=== PATIENT | male | born 1940 | race Caucasian/White ===

== ENCOUNTER → 2017-11-08 | Outpatient (CLI) | payer MEDICARE ==
--- NOTE | 2017-11-08 13:25 | US ---
EXAMINATION TYPE: US carotid duplex BILAT DATE OF EXAM: 11/08/2017 COMPARISON: NONE CLINICAL HISTORY: R42 Dizziness. EXAM MEASUREMENTS: RIGHT: Peak Systolic Velocity (PSV) cm/sec ----- Right CCA: 60.2 ----- Right ICA: 79.0 ----- Right ECA: 86.0 ICA/CCA ratio: 1.3 RIGHT: End Diastole cm/sec ----- Right CCA: 11.8 ----- Right ICA: 21.5 ----- Right ECA: 0.0 LEFT: Peak Systolic Velocity (PSV) cm/sec ----- Left CCA: 68.6 ----- Left ICA: 84.3 ----- Left ECA: 53.7 ICA/CCA ratio: 1.2 LEFT: End Diastole cm/sec ----- Left CCA: 11.9 ----- Left ICA: 24.1 ----- Left ECA: 0.0 VERTEBRALS (direction of flow): Right Vertebral: Antegrade Left Vertebral: Antegrade Rhythm: Normal No significant stenosis seen, no elevated velocities, mild bilateral plaque. IMPRESSION: No evidence for hemodynamically significant stenosis. Criteria for Assigning % of Stenosis / Diameter reduction (Estimation based on the indirect measurements of the internal carotid artery velocities (ICA PSV). 1. Normal (no stenosis)=ICA PSV < 125 cm/s: ratio < 2.0: ICA EDV<40 cm/s. 2. Less than 50% stenosis=ICA PSV < 125 cm/s: ratio < 2.0: ICA EDV<40 cm/s. 3. 50 to 69% stenosis=ICA PSV of 125 to 230 cm/s: ration 2.0 ? 4.0: ICA EDV 40-100 cm/s. 4. Greater than 70% stenosis to near occlusion= ICA PSV > 230 cm/s: ratio > 4.0: ICA EDV > 100 cm/s. 5. Near occlusion= ICA PSV velocities may be low or undetectable: variable ratio and ICA EDV. 6. Total occlusion=unable to detect flow.
== END | disposition home or self-care (01) ==
LOC: RADUSWWP 11:57
PROVIDERS: ATTEND Family Medicine
DX: R42 Dizziness and giddiness (principal)
CPT/HCPCS: 93880

== ENCOUNTER → 2017-11-26 | Outpatient (CLI) | payer MEDICARE ==
--- NOTE | 2017-11-29 10:14 | ECHOF ---
Referral Reason:R42 Dizziness MEASUREMENTS -------- HEIGHT: 182.9 cm WEIGHT: 93.9 kg BP: RVIDd: 3.0 cm (< 3.3) IVSd: 1.3 cm (0.6 - 1.1) LVIDd: 4.1 cm (3.9 - 5.3) LVPWd: 1.3 cm (0.6 - 1.1) IVSs: 1.8 cm LVIDs: 2.1 cm LVPWs: 1.6 cm LAESV Index (A-L): 16.11 ml/m Ao Diam: 3.1 cm (2.0 - 3.7) AV Cusp: 2.1 cm (1.5 - 2.6) LA Diam: 4.2 cm (2.7 - 3.8) MV EXCURSION: 15.618 mm (> 18.000) MV EF SLOPE: 30 mm/s (70 - 150) EPSS: 0.5 cm MV E Macario: 0.79 m/s MV DecT: 222 ms MV A Macario: 1.02 m/s MV E/A Ratio: 0.77 AR PHT: 508 ms RAP: 5.00 mmHg RVSP: 20.81 mmHg FINDINGS -------- Sinus rhythm. This was a technically good study. The left ventricular size is normal. There is mild concentric left ventricular hypertrophy. Overa ll left ventricular systolic function is normal with, an EF between 55 - 60 %. The right ventricle is normal in size and function. The left atrium is normal in size. The right atrium is normal in size. Aortic valve is trileaflet and is mildly thickened. There is mild aortic regurgitation. The mitral valve leaflets are mildly thickened. Mild mitral regurgitation is present. Mild tricuspid regurgitation present. The right ventricular systolic pressure, as measured by Doppl er, is 20.81mmHg. Pulmonic valve appears structurally normal. The aortic root size is normal. IVC Not well visulized. CONCLUSIONS -------- 1. Sinus rhythm. 2. This was a technically good study. 3. The left ventricular size is normal. 4. There is mild concentric left ventricular hypertrophy. 5. Overall left ventricular systolic function is normal with, an EF between 55 - 60 %. 6. The right ventricle is normal in size and function. 7. The left atrium is normal in size. 8. The right atrium is normal in size. 9. Aortic valve is trileaflet and is mildly thickened. 10. There is mild aortic regurgitation. 11. The mitral valve leaflets are mildly thickened. 12. Mild mitral regurgitation is present. 13. Mild tricuspid regurgitation present. 14. The right ventricular systolic pressure, as measured by Doppler, is 20.81mmHg. 15. Pulmonic valve appears structurally normal. 16. The aortic root size is normal. 17. IVC Not well visulized. FLIGHT DECK OFFICER: Cori Martinez RDCS
== END | disposition home or self-care (01) ==
LOC: RADECHMAIN 15:27
PROVIDERS: ATTEND Family Medicine
DX: I08.3 Combined rheumatic disorders of mitral, aortic and tricuspid valves (principal)
CPT/HCPCS: 93306

== ENCOUNTER 2018-07-30 13:25 | Inpatient (IN) | payer MEDICARE ==
[2018-07-30 15:28] LABS: Albumin 4.4 g/dL (3.5-5.0); Calcium 9.8 mg/dL (8.4-10.2); Potassium 4.3 mmol/L (3.5-5.1); Total Bilirubin 1.2 mg/dL (0.2-1.3); Total Protein 7.3 g/dL (6.3-8.2)
[2018-07-30 15:30] LABS: Appearance,Urine Clear (Clear); Bilirubin,Urine Negative (Negative); Blood,Urine Negative (Negative); Color,Urine Yellow; Glucose,Urine (UA) Negative (Negative); Ketones,Urine Negative (Negative); Leukocyte Esterase,Urine Negative (Negative); Nitrite,Urine Negative (Negative); PH, Urine 5.5 (5.0-8.0); Protein,Urine Trace (Negative); Specific Gravity,Urine 1.015 (1.001-1.035); Urobilinogen,Urine <2.0 mg/dL (<2.0)
[2018-07-30] MEDS ORDERED: SODIUM CHLORIDE 0.9% 500 ML 500 ML IV ONE (15:33)
[2018-07-30 15:48] LABS: Basophils % (A) 0 %; Eosinophils # (A) 0.3 k/uL (0-0.7); Eosinophils % (A) 3 %; HCT 39.7 % (39.0-53.0); HGB 12.9 gm/dL (13.0-17.5); Lymphocytes # (A) 2.3 k/uL (1.0-4.8); Lymphocytes % (A) 25 %; MCH 29.3 pg (25.0-35.0); MCHC 32.6 g/dL (31.0-37.0); MCV 89.9 fL (80.0-100.0); Mean Platelet Volume 7.4; Monocytes # (A) 0.8 k/uL (0-1.0); Monocytes % (A) 8 %; Neutrophils # (A) 5.6 k/uL (1.3-7.7); Neutrophils % (A) 61 %; Platelet Count 163 k/uL (150-450); RBC 4.41 m/uL (4.30-5.90); RDW 13.9 % (11.5-15.5); WBC 9.3 k/uL (3.8-10.6)
[2018-07-30] MEDS ORDERED: KETOROLAC 30 MG/ML 1 ML VIAL IVP STA (15:50)
--- NOTE | 2018-07-30 16:22 | CT ---
EXAMINATION TYPE: CT abdomen pelvis w con, CT lumbar spine w con DATE OF EXAM: 07/30/2018 COMPARISON: None. HISTORY: Generalized pain CT DLP: 2257.8 mGycm, Automated Exposure Control for Dose Reduction was Utilized. CONTRAST: CT scan of abdomen and pelvis and lumbar spine are all performed without oral but with IV Contrast, p atient injected with 80 mL of Isovue 300. FINDINGS: LUNG BASES: Coronary artery calcification is present which is noted marker for underlying coronary ar jay disease. Dependent atelectasis is seen. Respiratory motion artifact degradation is present. LIVER/GB: Linear calcification inferior lateral right hepatic lobe is presumed benign, artifact degra dation is present. PANCREAS: No significant abnormality is seen. SPLEEN: No significant abnormality is seen. ADRENALS: No significant abnormality is seen. KIDNEYS: There are a few small simple appearing cysts scattered throughout both kidneys. There is sym metric or medullary uptake and excretion without hydronephrosis seen bilaterally. Bladder is poorly d istended. There is mild to moderate abnormal concentric wall thickening measuring up to 9 mm. BOWEL: Normal-appearing appendix is felt from base of cecum extending inferiorly. No suspicious small or large bowel dilatation. PROSTATE/SEMINAL VESICLES: No gross abnormality seen. LYMPH NODES: No greater than 1cm abdominal or pelvic lymph nodes are appreciated. OSSEOUS STRUCTURES: Moderate multilevel spurring in the thoracic spine is seen. There is mild to mode rate narrowing and mild spurring of both hip joints OTHER: Mild calcified plaque of aorta is seen. Infrarenal IVC filter is present. There is prominence of the common iliac veins noted before IVC junc tion. There is ill-defined fluid and fat stranding near iliac junction with ill-defined fluid extendi ng into the upper pelvis. Lumbar spine: There are 5 lumbar-type vertebra identified. Vertebral body heights are maintained. Faviola tebral body heights are maintained. There is moderate disc space narrowing with moderate diffuse ante rior spurring L4-L5 level. There is mild disc space narrowing with vacuum disc phenomenon L5-S1 level . No large posterior disc herniations are seen on sagittal images. Axial images show mild facet degener ative changes L2-L3 with mild broad disc bulge minimally effacing anterior thecal sac. There is moderate to moderate broad disc bulge mildly effacing anterior thecal sac with moderate face t degenerative changes L3-L4 level this is causing mild left greater than right bilateral anterior in ferior neural foraminal narrowing. Axial images at the L4-L5 level show moderate to advanced right greater than left facet degenerative changes. There is central disc protrusion but spinal canal is preserved. There is moderate right-side d neural foraminal narrowing. Axial images at the L5-S1 level shows central disc protrusion with moderate facet degenerative change s. Spinal canal is preserved. Bilateral neural foramina are patent. IMPRESSION: 1. Possible cystitis as there is abnormal wall thickening and poorly distended bladder, correlate cli nically and with urine and lab values. 2. 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 Infrarenal IVC filter is noted. Other et iologies of inflammation not excluded. 3. Multilevel degenerative changes in lumbar spine as detailed above. No acute fracture or dislocatio n.
--- NOTE | 2018-07-30 16:26 | ED ---
General Adult HPI - General Chief complaint: Back Pain/Injury Stated complaint: Back Pain left leg pain & swelling Time Seen by Provider: 07/30/18 14:33 Source: patient Limitations: physical limitation - History of Present Illness Initial comments: Very pleasant 78-year-old male presented for multiple complaints. 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 He states he is unable to fit it into his prosthetic. He states he has not experienced this in the past. He denies any erythema fever chills or night sweats. In addition patient states she has had bilateral lower back pain he states it feels more to the side opposed to midline. He denies any falls or direct trauma to the back. He denies any numbness tingling or loss sensation of the lower extremities he denies any weakness of the hip joint. Patient denies any loss of bowel or bladder control. He states he has had some urinary hesitancy lately he feels he only urinates a small amount, he has peed since arrival in ER. Patient denies any midabdominal discomfort or extensive distention. He denies a dysuria frequency or hematuria. Patient states after a total knee surgery he had a DVT he states he has not had one since. He denies use of anticoagulation therapy aside from a daily aspirin. Patient denies history of diabetes, hypertension, and coronary artery disease or CVA. Upon arrival patient is pleasant he appears well there is no signs of acute distress or toxicity. Patient is afebrile. Remaining review of system negative, patient denies chest pain, dyspnea dyspraxia exertion he denies nausea vomiting epigastric pain or abdominal pain. - Related Data Home Medications Medication Instructions Recorded Confirmed Aspirin [[place] Aspirin EC] 81 mg PO DAILY 07/30/18 07/30/18 Atorvastatin [Lipitor] 20 mg PO DAILY 07/30/18 07/30/18 Citalopram Hydrobromide [CeleXA] 10 mg PO DAILY 07/30/18 07/30/18 Glucosamine/MSM/Chrond/D3/Bosw 1 tab PO BID 07/30/18 07/30/18 [Apebdybiqzk-Szopva-FBB-D3 Cplt] Lansoprazole [Prevacid] 30 mg PO DAILY 07/30/18 07/30/18 Metoprolol Succinate [Toprol XL] 50 mg PO DAILY 07/30/18 07/30/18 Allergies Allergy/AdvReac Type Severity Reaction Status Date / Time No Known Allergies Allergy Verified 07/30/18 14:22 Review of Systems ROS Statement: Those systems with pertinent positive or pertinent negative responses have been documented in the HPI. ROS Other: All systems not noted in ROS Statement are negative. Past Medical History Past Medical History: No Reported History History of Any Multi-Drug Resistant Organisms: None Reported Past Surgical History: Hernia Repair Additional Past Surgical History / Comment(s): BKA, AKA Past Psychological History: No Psychological Hx Reported Smoking Status: Never smoker Past Alcohol Use History: None Reported Past Drug Use History: None Reported General Exam - General Exam Comments Initial Comments: General: The patient is awake and alert, in no distress, and does not appear acutely ill. Eye: Pupils are equal, round and reactive to light, extra-ocular movements are intact. No nystagmus. There is normal conjunctiva bilaterally. No signs of icterus. Ears, nose, mouth and throat: There are moist mucous membranes and no oral lesions. Neck: The neck is supple, there is no tenderness or JVD. Cardiovascular: There is a regular rate and rhythm. No murmur, rub or gallop is appreciated. Respiratory: Lungs are clear to auscultation, respirations are non-labored, breath sounds are equal. No wheezes, stridor, rales, or rhonchi. Gastrointestinal: Soft, non-distended, non-tender abdomen without masses or organomegaly noted. There is no rebound or guarding present. No CVA tenderness. Bowel sounds are unremarkable. Normal rectal tone, no gross blood. Musculoskeletal: BKA of the right LE, AKA of the left leg, that is swollen. No erythema or warmth. Normal ROM, no tenderness of the hips b/l. Strength 5/5 at the hips b/l. Sensation intact of the LE b/l. Radial pulses equal bilaterally 2+. Neurological: A&O x 3. CN II-XII intact, There are no obvious motor or sensory deficits. Coordination appears grossly intact. Speech is normal. Skin: Skin is warm and dry and no rashes or lesions are noted. Psychiatric: Cooperative, appropriate mood & affect, normal judgment. Limitations: physical limitation Course Vital Signs 07/30/18 13:48 Temperature 97.5 F L Pulse Rate 69 Respiratory 20 Rate Blood Pressure 140/68 O2 Sat by Pulse 96 Oximetry Medical Decision Making - Medical Decision Making Well-appearing 78-year-old male presenting today for chief complaint of right stump swelling. 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 He states it has been swollen for the past day. He is unable to use his prosthesis. He denies pain. Patient states he does have some bilateral lower back pain. He states he hasn't a baseline however this appears increases mostly to the right side. Patient denies any injury to the back. Patient is neurovascularly intact upon examination. There is extensive swelling of the right stump. No erythema or signs of infection. Patient shows no signs of toxicity he is afebrile no leukocytosis. CT of the lumbar spine revealed no significant spinal canal stenosis or foraminal narrowing narrowing. Patient has good rectal tone and sensation of the lower extremities as well as strength of the hips bilaterally. I very low suspicion for cauda equina. Patient has no urinary retention on bladder scan. I feel he has hesitancy could be related to enlarged prostate as differential diagnosis. Patient denies stool incontinence. There is no significant midline tenderness to patient of the lumbar spine mostly right-sided paravertebral. Differential diagnosis included kidney stones for the right low back/flank pain. CT revealed no acute intra-abdominal process. There was findings consistent with possible chronic venous thrombosis. Ultrasound the right lower extremity revealed a distal femoral DVT, appears acute. Most likely pt cause of swelling. At this time pt will be started on high intesity heparin and admitted to the hospital. Pt has IVC filter in place. Dr Mahoney accepted admission after speaking with my attending Dr. Aguirre who reviewed both laboratory and imaging studies. Pt is agreeable with admission at this time. Pt was evaluated at 6:40 in the Er by admitting provider who states he will place any consults, no further instruction from attending nor admitting provider. Pt transferred to floor in stable condition. - Lab Data Result diagrams: 07/30/18 15:08 07/30/18 15: Lab Results 07/30/18 07/30/18 07/30/18 Range/Units 15: 15: 15: WBC 9.3 (3.8-10.6) k/uL RBC 4.41 (4.30-5.90) m/uL Hgb 12.9 L (13.0-17.5) gm/dL Hct 39.7 (39.0-53.0) % MCV 89.9 (80.0-100.0) fL MCH 29.3 (25.0-35.0) pg MCHC 32.6 (31.0-37.0) g/dL RDW 13.9 (11.5-15.5) % Plt Count 163 (150-450) k/uL Neutrophils % 61 % Lymphocytes % 25 % Monocytes % 8 % Eosinophils % 3 % Basophils % 0 % Neutrophils # 5.6 (1.3-7.7) k/uL Lymphocytes # 2.3 (1.0-4.8) k/uL Monocytes # 0.8 (0-1.0) k/uL Eosinophils # 0.3 (0-0.7) k/uL Basophils # 0.0 (0-0.2) k/uL PT (9.0-12.0) sec INR (<1.2) APTT (22.0-30.0) sec Sodium 140 (137-145) mmol/L Potassium 4.3 (3.5-5.1) mmol/L Chloride 109 H (98-107) mmol/L Carbon Dioxide 21 L (22-30) mmol/L Anion Gap 10 mmol/L BUN 22 H (9-20) mg/dL Creatinine 1.32 H (0.66-1.25) mg/dL Est GFR (CKD-EPI)AfAm 59 (>60 ml/min/1.73 sqM) Est GFR (CKD-EPI)NonAf 51 (>60 ml/min/1.73 sqM) Glucose 95 (74-99) mg/dL Calcium 9.8 (8.4-10.2) mg/dL Total Bilirubin 1.2 (0.2-1.3) mg/dL AST 24 (17-59) U/L ALT 16 L (21-72) U/L Alkaline Phosphatase 96 (38-126) U/L NT-Pro-B Natriuret Pep pg/mL Total Protein 7.3 (6.3-8.2) g/dL Albumin 4.4 (3.5-5.0) g/dL Urine Color Yellow Urine Appearance Clear (Clear) Urine pH 5.5 (5.0-8.0) Ur Specific [place] 1.015 (1.001-1.035) Urine Protein Trace H (Negative) Urine Glucose (UA) Negative (Negative) Urine Ketones Negative (Negative) Urine Blood Negative (Negative) Urine Nitrite Negative (Negative) Urine Bilirubin Negative (Negative) Urine Urobilinogen <2.0 (<2.0) mg/dL Ur Leukocyte Esterase Negative (Negative) 07/30/18 07/30/18 Range/Units 15:08 15:08 WBC (3.8-10.6) k/uL RBC (4.30-5.90) m/uL Hgb (13.0-17.5) gm/dL Hct (39.0-53.0) % MCV (80.0-100.0) fL MCH (25.0-35.0) pg MCHC (31.0-37.0) g/dL RDW (11.5-15.5) % Plt Count (150-450) k/uL Neutrophils % % Lymphocytes % % Monocytes % % Eosinophils % % Basophils % % Neutrophils # (1.3-7.7) k/uL Lymphocytes # (1.0-4.8) k/uL Monocytes # (0-1.0) k/uL Eosinophils # (0-0.7) k/uL Basophils # (0-0.2) k/uL PT 10.0 (9.0-12.0) sec INR 0.9 (<1.2) APTT 23.7 (22.0-30.0) sec Sodium (137-145) mmol/L Potassium (3.5-5.1) mmol/L Chloride (98-107) mmol/L Carbon Dioxide (22-30) mmol/L Anion Gap mmol/L BUN (9-20) mg/dL Creatinine (0.66-1.25) mg/dL Est GFR (CKD-EPI)AfAm (>60 ml/min/1.73 sqM) Est GFR (CKD-EPI)NonAf (>60 ml/min/1.73 sqM) Glucose (74-99) mg/dL Calcium (8.4-10.2) mg/dL Total Bilirubin (0.2-1.3) mg/dL AST (17-59) U/L ALT (21-72) U/L Alkaline Phosphatase (38-126) U/L NT-Pro-B Natriuret Pep 163 pg/mL Total Protein (6.3-8.2) g/dL Albumin (3.5-5.0) g/dL Urine Color Urine Appearance (Clear) Urine pH (5.0-8.0) Ur Specific [place] (1.001-1.035) Urine Protein (Negative) Urine Glucose (UA) (Negative) Urine Ketones (Negative) Urine Blood (Negative) Urine Nitrite (Negative) Urine Bilirubin (Negative) Urine Urobilinogen (<2.0) mg/dL Ur Leukocyte Esterase (Negative) Disposition Clinical Impression: Femoral vein thrombosis, right, Low back pain, Urinary hesitancy Disposition: ADMITTED IP TO THIS [facility] Condition: Good Is patient prescribed a controlled substance at d/c from ED?: No Time of Disposition: 17:42 Decision to Admit Reason: Admit from EC Decision Date: 07/30/18 Decision Time: 17:42
[2018-07-30] MEDS ORDERED: Acetaminophen-Codeine 300-30mg TAB PO STA (16:54)
--- NOTE | 2018-07-30 16:58 | US ---
EXAMINATION TYPE: US venous doppler duplex LE RT DATE OF EXAM: 07/30/2018 4:37 PM COMPARISON: NONE CLINICAL HISTORY: swelling in above knee amputaion stump. Hx DVT. Swelling above knee amputation stum p x 3 days. Amputation 8 years ago after trauma. SIDE PERFORMED: Right TECHNIQUE: The lower extremity deep venous system is examined utilizing real time linear array sonog marcin with graded compression, doppler sonography and color-flow sonography. VESSELS IMAGED: External Iliac Vein (EIV) Common Femoral Vein Deep Femoral Vein Greater Saphenous Vein * Femoral Vein There appears to be extensive DVT in the right lower extremity. Veins visualized are non-compressibl e. Thrombus seen from right distal femoral vein extending to external iliac vein. Right Leg: Positive IMPRESSION: Complete thrombosis of the right lower extremity venous system is present. Patient has kn own IVC filter.
[2018-07-30] MEDS ORDERED: HEPARIN SODIUM,PORCINE 5,000 UNIT/ML 1 ML VIAL IV PRN (17:40)
[2018-07-30] MEDS ORDERED: HEPARIN SODIUM,PORCINE 10,000 UNIT/ML 1 ML VIAL IV ONE (17:40)
[2018-07-30] MEDS ORDERED: MORPHINE SULFATE 4 MG/ML SYRINGE IV PRN (18:12)
[2018-07-30] MEDS ORDERED: NALOXONE 0.4 MG/ML 1 ML VIAL IV PRN (18:12)
[2018-07-30 18:13] LABS: INR 0.9 (<1.2); Partial Thromboplastin Time 23.7 sec (22.0-30.0)
[2018-07-30] MEDS ORDERED: ACETAMINOPHEN TAB 325 MG TAB PO PRN (19:05)
[2018-07-30] MEDS ORDERED: traMADol 50 MG TAB PO PRN (19:05)
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
[2018-07-30] MEDS: HEPARIN SOD,PORK IN 0.45% NACL 25,000 UNIT in 0.45% NACL 1 250ML.BAG IV SCH (19:16)
[2018-07-30] MEDS: SODIUM CHLORIDE 0.9% 1,000 ML IV SCH (19:19)
[2018-07-30 20:22] VITALS: BMI 29.8
[2018-07-31 03:34] VITALS: RESP 18
[2018-07-31] MEDS: HYDROcodone/APAP 5-325MG 1 EACH TAB PO PRN ×2 (03:56→13:47)
[2018-07-31] MEDS: SODIUM CHLORIDE 0.9% 1,000 ML IV SCH (06:46)
[2018-07-31] MEDS ORDERED: PANTOPRAZOLE 40 MG TABLET PO SCH (07:30)
[2018-07-31] MEDS ORDERED: METOPROLOL SUCCINATE (ER) 50 MG TAB.ER.24H PO SCH (09:00)
[2018-07-31] MEDS ORDERED: CITALOPRAM HYDROBROMIDE 10 MG TAB PO SCH (09:00)
[2018-07-31] MEDS ORDERED: ATORVASTATIN 20 MG TAB PO SCH (09:00)
[2018-07-31] MEDS ORDERED: ASPIRIN 81 MG PO SCH (09:00)
[2018-07-31 09:51] LABS: Basophils % (A) 0 %; Eosinophils # (A) 0.4 k/uL (0-0.7); Eosinophils % (A) 5 %; HCT 36.7 % (39.0-53.0); HGB 12.1 gm/dL (13.0-17.5); Lymphocytes # (A) 2.6 k/uL (1.0-4.8); Lymphocytes % (A) 34 %; MCH 30.6 pg (25.0-35.0); MCV 92.4 fL (80.0-100.0); Mean Platelet Volume 7.5; Monocytes # (A) 0.5 k/uL (0-1.0); Monocytes % (A) 7 %; Neutrophils # (A) 3.9 k/uL (1.3-7.7); Neutrophils % (A) 51 %; Platelet Count 164 k/uL (150-450); RBC 3.97 m/uL (4.30-5.90); RDW 13.3 % (11.5-15.5); WBC 7.6 k/uL (3.8-10.6)
[2018-07-31 10:42] LABS: Calcium 8.8 mg/dL (8.4-10.2); Potassium 4.5 mmol/L (3.5-5.1)
[2018-07-31] MEDS: HEPARIN SOD,PORK IN 0.45% NACL 25,000 UNIT in 0.45% NACL 1 250ML.BAG IV SCH (11:27)
[2018-07-31 11:58] VITALS: BP 127/60; PULSE 60; TEMP 97.7
[2018-07-31] MEDS ORDERED: RIVAROXABAN 15 MG TAB PO STA (14:36)
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
== END 2018-07-31 16:48 | disposition home or self-care (01) | DRG 300 ==
LOC: EC 13:25 → 3SCARD 18:12
PROVIDERS: ADMIT Family Medicine; ATTEND Family Medicine
DX: I82.411 Acute embolism and thrombosis of right femoral vein (principal); E87.2 Acidosis; N17.9 Acute kidney failure, unspecified; E86.0 Dehydration; I10 Essential (primary) hypertension; K59.00 Constipation, unspecified; M54.5 Low back pain; R39.11 Hesitancy of micturition; Z79.82 Long term (current) use of aspirin; Z79.899 Other long term (current) drug therapy; Z86.718 Personal history of other venous thrombosis and embolism; Z89.611 Acquired absence of right leg above knee; Z89.512 Acquired absence of left leg below knee; Z98.890 Other specified postprocedural states; Z96.652 Presence of left artificial knee joint; Z95.828 Presence of other vascular implants and grafts
CPT/HCPCS: 36415; 72132; 74177; 80048; 80053; 81003; 82272; 83880; 85025; 85610; 85730; 96361; 96365; 96375; 96376; 99284

== ENCOUNTER 2021-04-03 10:30 | Emergency (ER) | payer MEDICARE ==
--- NOTE | 2021-04-03 11:24 | ED ---
General Adult HPI - General Chief complaint: Abdominal Pain Stated complaint: urinary retention/possible uti Time Seen by Provider: 04/03/21 11:00 Source: patient, EMS Mode of arrival: EMS Limitations: no limitations - History of Present Illness Initial comments: 81-year-old male presents to the emergency department with urinary symptoms. Patient states his daughter made him come in due to him having urinary hesitancy, burning with urination, and dribbling that began on Saturday. He states he has never experienced anything like this before, however, he says over the last month his pee has been getting on his bed and tripping on his pants when he uses his urinal. Patient states he does always use a urinal when he has to pee. Patient states he last urinated this morning. Patient also states he is having pain of his right leg at the site of his stump amputation. 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 He denies any erythema, warmth, pain to palpation at that site. Patient denies any pain, fevers, blood in urine, abdominal pain, chest pain, shortness of breath, dizziness, confusion. - Related Data Home Medications Medication Instructions Recorded Confirmed Aspirin [[place] Aspirin EC] 81 mg PO DAILY 07/30/18 07/30/18 Atorvastatin [Lipitor] 20 mg PO DAILY 07/30/18 07/30/18 Citalopram Hydrobromide [CeleXA] 10 mg PO DAILY 07/30/18 07/30/18 Glucosamine/MSM/Chrond/D3/Bosw 1 tab PO BID 07/30/18 07/30/18 [Enqazznqsso-Rraubs-OIJ-D3 Cplt] Lansoprazole [Prevacid] 30 mg PO DAILY 07/30/18 07/30/18 Metoprolol Succinate [Toprol XL] 50 mg PO DAILY 07/30/18 07/30/18 Previous Rx's Medication Instructions Recorded HYDROcodone/APAP 5-325MG [[employer] 1 each PO Q4HR PRN #18 tab 07/31/18 5-325] Rivaroxaban [Xarelto] 15 mg PO BID #42 tab 07/31/18 Rivaroxaban [Xarelto] 20 mg PO DAILY #90 tab 07/31/18 Cefdinir [Omnicef] 300 mg PO Q12HR 7 Days #14 capsule 04/03/21 Allergies Allergy/AdvReac Type Severity Reaction Status Date / Time No Known Allergies Allergy Verified 04/03/21 10:56 Review of Systems ROS Statement: Those systems with pertinent positive or pertinent negative responses have been documented in the HPI. ROS Other: All systems not noted in ROS Statement are negative. Past Medical History Past Medical History: No Reported History, Deep Vein Thrombosis (DVT) History of Any Multi-Drug Resistant Organisms: None Reported Past Surgical History: Hernia Repair Additional Past Surgical History / Comment(s): BKA, AKA Past Anesthesia/Blood Transfusion Reactions: No Reported Reaction Past Psychological History: No Psychological Hx Reported Smoking Status: Never smoker Past Alcohol Use History: None Reported Past Drug Use History: None Reported - Past Family History Brother(s) Family Medical History: Cancer Additional Family Medical History / Comment(s): stomach ca Sister(s) Family Medical History: Cancer Additional Family Medical History / Comment(s): breast ca General Exam Limitations: no limitations General appearance: alert, in no apparent distress Head exam: Present: atraumatic, normocephalic Eye exam: Present: normal appearance, EOMI ENT exam: Present: normal exam, mucous membranes moist Neck exam: Present: normal inspection, full ROM Respiratory exam: Present: normal lung sounds bilaterally. Absent: respiratory distress, wheezes, rales, rhonchi, stridor Cardiovascular Exam: Present: regular rate, normal rhythm, normal heart sounds. Absent: systolic murmur, diastolic murmur, rubs, gallop, clicks GI/Abdominal exam: Present: soft, normal bowel sounds. Absent: distended, tenderness, guarding, rebound, rigid Extremities exam: Present: other (Prosthetic leg on left lower extremity, [id number] amputation on right leg. No erythema, warmth, or pain to palpation of right leg.) Back exam: Present: full ROM. Absent: CVA tenderness (R), CVA tenderness (L) Neurological exam: Present: alert, oriented X3, CN II-XII intact Psychiatric exam: Present: normal affect, normal mood Skin exam: Present: warm, dry, intact, normal color. Absent: rash Course Vital Signs 04/03/21 10:52 Temperature 98.5 F Pulse Rate 61 Respiratory 22 Rate Blood Pressure 131/61 O2 Sat by Pulse 94 L Oximetry Medical Decision Making - Medical Decision Making This 81-year-old male presents emergency Department with urinary hesitancy, burning with urination and dribbling that has been worsening over the last month. Daughter also mentioned he has been having intermittent episodes of right lower extremity pain. Labs reveal RBC 3.91, HCT 38.6, lipase 21, glucose 111; all other labs unremarkable. Post void bladder scan 12 mLs Urine: Positive nitrate, urine protein 2+, trace ketones, moderate blood, leukocyte esterase moderate, WBC 122, RBC 11, bacteria moderate, occasional mucus. Will treat urinary tract infection. Venous Doppler ultrasound of right lower extremity: Findings clearly represent sequela of prior deep pain thrombosis in the right common femoral vein; advised patient to follow up with primary care provider next 1-2 days. Patient sent home on antibiotics and to follow up with urology and primary care. Patient and daughter verbally agreed to plan. Patient sent home in stable condition. Discussed with my attending, my attending is Dr. Aguirre. - Lab Data Result diagrams: 04/03/21 12:06 04/03/21 12:06 Lab Results 04/03/21 04/03/21 04/03/21 Range/Units 12:06 12:06 12:06 WBC 10.6 (3.8-10.6) k/uL RBC 3.91 L (4.30-5.90) m/uL Hgb 13.1 (13.0-17.5) gm/dL Hct 38.6 L (39.0-53.0) % MCV 98.9 (80.0-100.0) fL MCH 33.4 (25.0-35.0) pg MCHC 33.8 (31.0-37.0) g/dL RDW 13.4 (11.5-15.5) % Plt Count 190 (150-450) k/uL MPV 8.2 Neutrophils % 64 % Lymphocytes % 25 % Monocytes % 6 % Eosinophils % 0 % Basophils % 0 % Neutrophils # 6.8 (1.3-7.7) k/uL Lymphocytes # 2.6 (1.0-4.8) k/uL Monocytes # 0.7 (0-1.0) k/uL Eosinophils # 0.0 (0-0.7) k/uL Basophils # 0.0 (0-0.2) k/uL Sodium 137 (137-145) mmol/L Potassium 4.1 (3.5-5.1) mmol/L Chloride 103 (98-107) mmol/L Carbon Dioxide 23 (22-30) mmol/L Anion Gap 11 mmol/L BUN 18 (9-20) mg/dL Creatinine 1.25 (0.66-1.25) mg/dL Est GFR (CKD-EPI)AfAm 62 (>60 ml/min/1.73 sqM) Est GFR (CKD-EPI)NonAf 54 (>60 ml/min/1.73 sqM) Glucose 111 H (74-99) mg/dL Plasma Lactic Acid Brant (0.7-2.0) mmol/L Calcium 9.3 (8.4-10.2) mg/dL Total Bilirubin 1.1 (0.2-1.3) mg/dL AST 34 (17-59) U/L ALT 17 (4-49) U/L Alkaline Phosphatase 74 (38-126) U/L Total Protein 6.9 (6.3-8.2) g/dL Albumin 4.0 (3.5-5.0) g/dL Amylase 67 (30-110) U/L Lipase 21 L (23-300) U/L Urine Color Yellow Urine Appearance Cloudy (Clear) Urine pH 5.5 (5.0-8.0) Ur Specific [place] 1.025 (1.001-1.035) Urine Protein 2+ H (Negative) Urine Glucose (UA) Negative (Negative) Urine Ketones Trace H (Negative) Urine Blood Moderate H (Negative) Urine Nitrite Positive (Negative) Urine Bilirubin Negative (Negative) Urine Urobilinogen <2.0 (<2.0) mg/dL Ur Leukocyte Esterase Moderate H (Negative) Urine RBC 11 H (0-5) /hpf Urine WBC 122 H (0-5) /hpf Urine WBC Clumps Few H (None) /hpf Ur Squamous Epith Cells <1 (0-4) /hpf Urine Bacteria Moderate H (None) /hpf Urine Mucus Occasional H (None) /hpf 04/03/21 Range/Units 12:06 WBC (3.8-10.6) k/uL RBC (4.30-5.90) m/uL Hgb (13.0-17.5) gm/dL Hct (39.0-53.0) % MCV (80.0-100.0) fL MCH (25.0-35.0) pg MCHC (31.0-37.0) g/dL RDW (11.5-15.5) % Plt Count (150-450) k/uL MPV Neutrophils % % Lymphocytes % % Monocytes % % Eosinophils % % Basophils % % Neutrophils # (1.3-7.7) k/uL Lymphocytes # (1.0-4.8) k/uL Monocytes # (0-1.0) k/uL Eosinophils # (0-0.7) k/uL Basophils # (0-0.2) k/uL Sodium (137-145) mmol/L Potassium (3.5-5.1) mmol/L Chloride (98-107) mmol/L Carbon Dioxide (22-30) mmol/L Anion Gap mmol/L BUN (9-20) mg/dL Creatinine (0.66-1.25) mg/dL Est GFR (CKD-EPI)AfAm (>60 ml/min/1.73 sqM) Est GFR (CKD-EPI)NonAf (>60 ml/min/1.73 sqM) Glucose (74-99) mg/dL Plasma Lactic Acid Brant 1.0 (0.7-2.0) mmol/L Calcium (8.4-10.2) mg/dL Total Bilirubin (0.2-1.3) mg/dL AST (17-59) U/L ALT (4-49) U/L Alkaline Phosphatase (38-126) U/L Total Protein (6.3-8.2) g/dL Albumin (3.5-5.0) g/dL Amylase (30-110) U/L Lipase (23-300) U/L Urine Color Urine Appearance (Clear) Urine pH (5.0-8.0) Ur Specific [place] (1.001-1.035) Urine Protein (Negative) Urine Glucose (UA) (Negative) Urine Ketones (Negative) Urine Blood (Negative) Urine Nitrite (Negative) Urine Bilirubin (Negative) Urine Urobilinogen (<2.0) mg/dL Ur Leukocyte Esterase (Negative) Urine RBC (0-5) /hpf Urine WBC (0-5) /hpf Urine WBC Clumps (None) /hpf Ur Squamous Epith Cells (0-4) /hpf Urine Bacteria (None) /hpf Urine Mucus (None) /hpf Disposition Clinical Impression: Urinary tract infection Disposition: HOME SELF-CARE Condition: Stable Instructions (If sedation given, give patient instructions): Urinary Tract Infection in Men (ED) Additional Instructions: Please return to the emergency department with any concerning, new, or worsening symptoms, Please follow-up with primary care provider and urology next 1-2 day s. Take antibiotics as directed. Prescriptions: Cefdinir [Omnicef] 300 mg PO Q12HR 7 Days #14 capsule Is patient prescribed a controlled substance at d/c from ED?: No Referrals: Drea Berg MD [Primary Care Provider] - 1-2 days Raphael Rose MD [STAFF PHYSICIAN] - 1-2 days Time of Disposition: 14:32
[2021-04-03 12:26] LABS: Basophils % (A) 0 %; Eosinophils % (A) 0 %; HCT 38.6 % (39.0-53.0); HGB 13.1 gm/dL (13.0-17.5); Lymphocytes # (A) 2.6 k/uL (1.0-4.8); Lymphocytes % (A) 25 %; MCH 33.4 pg (25.0-35.0); MCHC 33.8 g/dL (31.0-37.0); MCV 98.9 fL (80.0-100.0); Mean Platelet Volume 8.2; Monocytes # (A) 0.7 k/uL (0-1.0); Monocytes % (A) 6 %; Neutrophils # (A) 6.8 k/uL (1.3-7.7); Neutrophils % (A) 64 %; Platelet Count 190 k/uL (150-450); RBC 3.91 m/uL (4.30-5.90); RDW 13.4 % (11.5-15.5); WBC 10.6 k/uL (3.8-10.6)
[2021-04-03 12:32] LABS: Calcium 9.3 mg/dL (8.4-10.2); Potassium 4.1 mmol/L (3.5-5.1); Total Bilirubin 1.1 mg/dL (0.2-1.3); Total Protein 6.9 g/dL (6.3-8.2)
[2021-04-03 13:09] LABS: Appearance,Urine Cloudy (Clear); Bacteria,Urine Moderate /hpf; Bilirubin,Urine Negative (Negative); Blood,Urine Moderate (Negative); Color,Urine Yellow; Glucose,Urine (UA) Negative (Negative); Ketones,Urine Trace (Negative); Leukocyte Esterase,Urine Moderate (Negative); Mucus,Urine Occasional /hpf; Nitrite,Urine Positive (Negative); PH, Urine 5.5 (5.0-8.0); Protein,Urine 2+ (Negative); RBC,Urine 11 /hpf (0-5); Specific Gravity,Urine 1.025 (1.001-1.035); Squamous Epithelial Cell,Urine <1 /hpf (0-4); Urobilinogen,Urine <2.0 mg/dL (<2.0); WBC,Urine 122 /hpf (0-5)
[2021-04-03] MEDS ORDERED: cefTRIAXone IN SWFI 1,000 MG/10 ML SYRINGE IVP STA (13:31)
--- NOTE | 2021-04-03 14:22 | US ---
EXAMINATION TYPE: US venous doppler duplex LE RT DATE OF EXAM: 04/03/2021 2:10 PM COMPARISON: US CLINICAL HISTORY: pain. Right thigh muscle spasms x 3 days; right AK amputation; prior right leg DVT 2019 and is on blood thinner since. SIDE PERFORMED: Right TECHNIQUE: The lower extremity deep venous system is examined utilizing real time linear array sonog marcin with graded compression, doppler sonography and color-flow sonography. VESSELS IMAGED: Common Femoral Vein Deep Femoral Vein Greater Saphenous Vein * Femoral Vein Popliteal Vein Small Saphenous Vein * Proximal Calf Veins (* superficial vessels) Right Leg: Is positive for non occluding chronic DVT in CFV, Femoral Vein as thickened echoes on vei n carroll are imaged and partial vein compression is noted in right thigh. IMPRESSION: Findings clearly represent sequela of prior deep venous thrombosis in the right common fe moral vein
[2021-04-03 14:39] VITALS: BP 140/60; PULSE 93; RESP 14; TEMP 99.1
== END 2021-04-03 15:19 | disposition home or self-care (01) ==
LOC: EC 10:30
DX: N39.0 Urinary tract infection, site not specified (principal); Z86.718 Personal history of other venous thrombosis and embolism; Z79.82 Long term (current) use of aspirin
CPT/HCPCS: 51798; 36415; 80053; 82150; 83605; 83690; 85025; 81001; 87086; 87077; 87186; 93971; 99284; 96374; J0696

== ENCOUNTER 2024-01-27 06:10 | Day surgery (SDC) | payer MEDICARE ==
[2024-01-24 08:33] VITALS: BMI 27.2
[2024-01-27 06:49] VITALS: RESP 16; TEMP 97.6
[2024-01-27] MEDS: LACTATED RINGERS 1,000 ML IV SCH (06:52)
[2024-01-27] MEDS: IV FLUID CONTINUATION 1,000 ML IV ONE (06:52)
[2024-01-27] MEDS ORDERED: GLYCOPYRROLATE 0.2 MG/ML 2 ML VIAL ONE (07:00)
[2024-01-27] MEDS ORDERED: PROPOFOL 10 MG/ML 20 ML VIAL IV ONE (07:00)
[2024-01-27] MEDS ORDERED: fentaNYL (PF) 50 MCG/ML 2 ML AMP ONE (07:00)
--- NOTE | 2024-01-27 07:48 | OP ---
OPERATIVE REPORT DATE OF SERVICE : PROCEDURE PERFORMED: Bone marrow biopsy with general and local sedation. DESCRIPTION OF PROCEDURE: After being placed in the left lateral decubitus position, the right posterior iliac spine, followed by palpation of the right iliac crest was noted. Three swabs of Betadine and three swabs of alcohol were applied. 1% local lidocaine was applied to the periosteum, with a total of 10 mL. A 0.3 cm incision was made into the skin, a 4- inch Jamshidi needle was then advanced into the bone marrow with approximately 18 mL of aspirate along with a 1 cm core was obtained on the first attempt. There was less than 1 mL of blood loss. He returned to the postoperative area in stable condition. We will follow up on testing including flow cytometry, FISH, cytogenetics, and NGS in the clinic. PREOPERATIVE DIAGNOSIS: Macrocytic anemia. POSTOPERATIVE DIAGNOSIS: Macrocytic anemia. MMODL / IJN: [id number] /
[2024-01-27 07:52] LABS: HCT 31.1 % (39.0-53.0); HGB 9.8 gm/dL (13.0-17.5); MCH 36.9 pg (25.0-35.0); MCHC 31.4 g/dL (31.0-37.0); MCV 117.5 fL (80.0-100.0); Macrocytosis Marked; Mean Platelet Volume 11.4; Platelet Count 463 k/uL (150-450); RBC 2.65 m/uL (4.30-5.90); RDW 14.3 % (11.5-15.5); Reticulocyte % 1.7 % (0.5-2.0); WBC 7.6 k/uL (3.8-10.6)
[2024-01-27 08:00] VITALS: BP 127/73; PULSE 78
[2024-01-27 08:40] LABS: Eosinophils # (M) 0.08 k/uL (0-0.7); Monocytes # (M) 1.29 k/uL (0-1.0); Neutrophils % (M) 29 %; Nucleated Red Blood Cells 0 /100 WBC (0-0); Total Cells Counted 200
== END 2024-01-27 08:15 | disposition home or self-care (01) ==
LOC: OR 06:10
PROVIDERS: ATTEND Internal Medicine
DX: D53.9 Nutritional anemia, unspecified (principal); I10 Essential (primary) hypertension; E78.5 Hyperlipidemia, unspecified; M19.90 Unspecified osteoarthritis, unspecified site; K21.9 Gastro-esophageal reflux disease without esophagitis; Z79.01 Long term (current) use of anticoagulants; Z79.899 Other long term (current) drug therapy; Z79.82 Long term (current) use of aspirin
CPT/HCPCS: 85025; 85045; 38222; J3010; J2704; J1596